=== PATIENT | female | born 1985 | race Caucasian/White ===

== ENCOUNTER 2019-10-22 10:11 | Emergency (ER) | payer MEDICAID ==
[~2019-10-22] VITALS: Ht 160 cm; Wt 59.0 kg
[2019-10-22] MEDS ORDERED: MORPHINE SULFATE 4 MG/ML, 1ML ONE ×4 (10:44→13:18)
[2019-10-22] MEDS ORDERED: ONDANSETRON 2MG/ML, 2ML ONE (10:44)
[2019-10-22] MEDS: MORPHINE SULFATE 4 MG/ML, 1ML IVPush PRN ×2 (10:54→11:37)
[2019-10-22] MEDS ORDERED: ONDANSETRON 2MG/ML, 2ML IVPush ONE (11:00)
[2019-10-22] MEDS ORDERED: SODIUM CHLORIDE 0.9% 1,000ML IVBOLUS ONE (11:00)
--- NOTE | 2019-10-22 11:02 | NUR ---
CC ua obtained-sent to lab Piv placed from which labs were drawn-then medicated per emar for nausea & rlq abd pain at 11/14
[2019-10-22 11:10] LABS: BASOPHILS # (AUTO) 0.04 x10^3/uL (0-0.1); BASOPHILS % (AUTO) 0 % (0-1); EOSINOPHILS # (AUTO) 0.38 x10^3/uL (0-0.4); EOSINOPHILS % (AUTO) 5 % (1-7); LYMPHOCYTES # (AUTO) 1.28 x10^3/uL (1-3.4); LYMPHOCYTES % (AUTO) 16 % (22-44); MD NO; MEAN CORPUSCULAR HEMOGLOBIN 30.7 pg (27.0-34.8); MEAN CORPUSCULAR HGB CONC 32.6 g/dL (32.4-35.8); MEAN CORPUSCULAR VOLUME 94.1 fL (80-100); MEAN PLATELET VOLUME 8.4 fL (7.4-10.4); MONOCYTES # (AUTO) 0.61 x10^3/uL (0.2-0.8); MONOCYTES % (AUTO) 8 % (2-9); NEUTROPHILS # (AUTO) 5.76 x10^3/uL (1.8-6.8); NEUTROPHILS % (AUTO) 72 % (42-75); PLATELET COUNT 323 x10^3/uL (130-400); RED BLOOD COUNT 4.79 x10^6/uL (3.82-5.3); RED CELL DISTRIBUTION WIDTH 12.6 % (9.6-15.2)
[2019-10-22 11:11] LABS: MICROSCOPIC NOT IND
[2019-10-22 11:16] LABS: ALANINE AMINOTRANSFERASE 48 U/L (12-78); ALBUMIN 3.8 g/dL (3.4-5.0); ANION GAP 6 mmol/L (5-15); CALCIUM 9.2 mg/dL (8.5-10.1); CHLORIDE 109 mmol/L (98-107); CREATININE 0.83 mg/dL (0.55-1.02)
[2019-10-22 11:20] LABS: ALKALINE PHOSPHATASE 104 U/L (45-117); BILIRUBIN,TOTAL 0.5 mg/dL (0.2-1.0); TOTAL PROTEIN 7.5 g/dL (6.4-8.2)
--- NOTE | 2019-10-22 11:24 | NUR ---
With reassessment pain only slightly improved to 7/10
--- NOTE | 2019-10-22 11:40 | NUR ---
Remedicated for pain which worsened to 09/[address] scan at 1142
[2019-10-22] MEDS ORDERED: OMNIPAQUE 350 MG/ML, 100ML BOTTLE ONE (12:01)
[2019-10-22] MEDS ORDERED: KETOROLAC 30 MG/1 ML ONE (12:27)
[2019-10-22 12:30] VITALS: BP 130/87
[2019-10-22] MEDS ORDERED: morphine SULFATE 10 MG/ML, 1ML IVPush ONE (12:30)
[2019-10-22] MEDS ORDERED: KETOROLAC 30 MG/1 ML IVPush ONE (12:30)
--- NOTE | 2019-10-22 12:32 | NUR ---
RE-MEDICATED FOR PAIN REMAINING AT 9/10. PROVIDER AWARE. TO ORDER ULTRASOUND
== END 2019-10-22 13:54 | disposition home or self-care (01) ==
LOC: ED 11:20
DX: R10.2 Pelvic and perineal pain (principal); R10.31 Right lower quadrant pain; R11.0 Nausea
CPT/HCPCS: 36415; 74177; 76830; 80053; 81003; 83690; 84703; 85025; 96361; 96374; 96375; 96376; 99285; J1885; J2270; J2405; J7030; Q9967

== ENCOUNTER 2019-10-23 03:23 | Emergency (ER) | payer OTHER, MEDICAID ==
[~2019-10-23] VITALS: Ht 160 cm; Wt 60.0 kg
[2019-10-23] MEDS ORDERED: MORPHINE SULFATE 4 MG/ML, 1ML ONE ×2 (03:55→04:54)
[2019-10-23] MEDS ORDERED: ONDANSETRON 2MG/ML, 2ML ONE (03:55)
[2019-10-23] MEDS ORDERED: ONDANSETRON 2MG/ML, 2ML IVPush ONE (04:00)
[2019-10-23] MEDS ORDERED: SODIUM CHLORIDE 0.9% 1,000ML IVBOLUS ONE (04:00)
[2019-10-23] MEDS: MORPHINE SULFATE 4 MG/ML, 1ML IVPush PRN ×2 (04:05→04:57)
[2019-10-23 04:31] LABS: BASOPHILS # (AUTO) 0.02 x10^3/uL (0-0.1); BASOPHILS % (AUTO) 0 % (0-1); EOSINOPHILS # (AUTO) 0.02 x10^3/uL (0-0.4); EOSINOPHILS % (AUTO) 0 % (1-7); LYMPHOCYTES # (AUTO) 0.95 x10^3/uL (1-3.4); LYMPHOCYTES % (AUTO) 14 % (22-44); MD NO; MEAN CORPUSCULAR HEMOGLOBIN 30.5 pg (27.0-34.8); MEAN CORPUSCULAR HGB CONC 32.3 g/dL (32.4-35.8); MEAN CORPUSCULAR VOLUME 94.4 fL (80-100); MEAN PLATELET VOLUME 8.5 fL (7.4-10.4); MONOCYTES # (AUTO) 0.55 x10^3/uL (0.2-0.8); MONOCYTES % (AUTO) 8 % (2-9); NEUTROPHILS # (AUTO) 5.48 x10^3/uL (1.8-6.8); NEUTROPHILS % (AUTO) 78 % (42-75); PLATELET COUNT 303 x10^3/uL (130-400); RED BLOOD COUNT 4.35 x10^6/uL (3.82-5.3); RED CELL DISTRIBUTION WIDTH 12.9 % (9.6-15.2)
--- NOTE | 2019-10-23 04:35 | NUR ---
Pt states she "feels shakey" followng the morphine. Asked pt if pain was relieved. pt states "i can't tell, i'm just shakey and cold", pt provided with warm blankets.
[2019-10-23 04:44] LABS: ALANINE AMINOTRANSFERASE 42 U/L (12-78); ALBUMIN 3.7 g/dL (3.4-5.0); ANION GAP 7 mmol/L (5-15); CALCIUM 9.1 mg/dL (8.5-10.1); CHLORIDE 112 mmol/L (98-107); CREATININE 0.67 mg/dL (0.55-1.02)
[2019-10-23 04:46] LABS: ALKALINE PHOSPHATASE 95 U/L (45-117); BILIRUBIN,TOTAL 0.8 mg/dL (0.2-1.0); TOTAL PROTEIN 6.9 g/dL (6.4-8.2)
[2019-10-23] MEDS ORDERED: KETOROLAC 30 MG/1 ML ONE (05:14)
[2019-10-23 05:17] VITALS: BP 125/82
[2019-10-23] MEDS ORDERED: KETOROLAC 30 MG/1 ML IVPush ONE (05:30)
== END 2019-10-23 06:10 | disposition home or self-care (01) ==
LOC: ED 05:05
DX: R10.84 Generalized abdominal pain (principal); R10.2 Pelvic and perineal pain; R11.2 Nausea with vomiting, unspecified
CPT/HCPCS: 36415; 80053; 83690; 85025; 96361; 96374; 96375; 96376; 99284; J1885; J2270; J2405; J7030